=== PATIENT | male | born 1945 | race Caucasian/White ===

== ENCOUNTER 2016-09-05 14:18 | Emergency (ER) | payer MEDICARE, MEDICAID ==
--- NOTE | 2016-09-05 15:37 | US ---
DUPLX SCAN VEIN EXT UNI LT COMPARISON: None. HISTORY: Left lower leg swelling for 3 weeks. Technique: The veins of the left lower extremity were interrogated with real-time grayscale ultrasound, color Doppler, and spectral Doppler. Vessel compressibility and flow augmentation were assessed. FINDINGS: Deep venous thrombosis: None. Common femoral vein: Normal. Proximal femoral vein: Normal. Saphenous vein junction: Normal. Mid to distal femoral vein: Normal. Popliteal vein: Limited views. Normal compressibility and flow augmentation. Peroneal veins: Not visible. Posterior tibial veins: Limited views. Normally compressible with flow augmentation. IMPRESSION: 1. No evidence of deep venous thrombosis of the left lower extremity. Somewhat limited visualization of the popliteal vein and the posterior tibial veins. Nonvisualization of the peroneal veins. Report was sent to the emergency department electronic medical record system, 09/05/2016 at 15:38
[2016-09-05] MEDS ORDERED: DOXYCYCLINE HYCLATE 100 MG TABLET ONE (15:45)
[2016-09-05] MEDS ORDERED: CEPHALEXIN 500 MG CAPSULE ONE (15:45)
== END 2016-09-05 18:36 | disposition home or self-care (01) ==
LOC: ED 14:18
DX: L03.116 Cellulitis of left lower limb (principal); I10 Essential (primary) hypertension; J44.9 Chronic obstructive pulmonary disease, unspecified; F17.210 Nicotine dependence, cigarettes, uncomplicated
CPT/HCPCS: 99284 ×2; 93971; A9270 ×2